=== PATIENT | male | born 1990 | race African-American/Black ===

== ENCOUNTER → 2023-09-23 | Outpatient (CLI) | payer OTHER ==
[~2023-09-23] MED LIST: AMIT50TA PO; DULO1CAP4 PO; GABA-1171 PO; INDO50CA91 PO; LIDO5DIS41 TOP; SUMA25TA3 PO; TIZA4CAP PO; TOPI-21 PO; TRAM50TA2 PO
== END ==
LOC: M RAD 07:47
PROVIDERS: ATTEND Pain Medicine Interventional Pain Medicine
DX: M47.817 Spondylosis without myelopathy or radiculopathy, lumbosacral region (principal)

== ENCOUNTER → 2024-02-22 | Outpatient (CLI) | payer OTHER | LOC: M RAD 07:31 | PROVIDERS: ATTEND Family Medicine | DX: I10 Essential (primary) hypertension (principal) ==